=== PATIENT | female | born 2000 | race Caucasian/White ===

== ENCOUNTER 2022-08-14 21:09 | Observation (INO) | payer MEDICAID, SELFPAY ==
--- NOTE | 2022-08-14 | ECG_ITS ---
Test Reason : chest pain Blood Pressure : / mmHG Vent. Rate : 124 BPM Atrial Rate : 124 BPM P-R Int : 138 ms QRS Dur : 072 ms QT Int : 286 ms P-R-T Axes : 074 078 036 degrees QTc Int : 410 ms Sinus tachycardia Nonspecific T wave abnormality Abnormal ECG No previous ECGs available Referred By: Generic ED Physician Electronically Signed By:Justin Us
--- NOTE | ~2022-08-14 | XR_ITS ---
EXAMINATION: XR CHEST CLINICAL INFORMATION: Shortness of breath COMPARISON: None TECHNIQUE: 2 views of the chest were obtained. FINDINGS: No significant abnormality is noted involving the heart, lungs, mediastinum, bony thorax or soft tissues. XR/XR chest 2V IMPRESSION: Unremarkable examination.
[2022-08-14 21:14] VITALS: BP 148/95; PULSE 117; RESP 24; TEMP 36.4; O2SAT 96; BMI 32.3
[2022-08-14 22:30] VITALS: O2SAT 97
--- NOTE | 2022-08-14 22:57 | ED.SOB ---
HPI - SOB/Dyspnea General Chief Complaint: Dyspnea Stated Complaint: cough, hard time breathing Time Seen by Provider: 08/14/22 22:31 History of Present Illness HPI Narrative: patient is a 22-year-old female with a history of asthma. Presents today with coughing congestion upper respiratory symptoms that is been ongoing for 2 days. Feeling more tightness. Cough is nonproductive. Patient is vaccinated for COVID. Does not smoke. Use of breathing treatment with moderate relief. Never been intubated in the past. Patient has been seen in the emergency department as a child. Related Data Allergies Allergy/AdvReac Type Severity Reaction Status Date / Time ENVIRONMENTAL Allergy Unknown ASTHMA SX Uncoded 04/01/20 19:47 Review of Systems Review of Systems: Positive coughing congestion upper respiratory symptoms PMFSH Past Medical History Attestation statement: The following information was validated with the patient. Social History Social History Advance Directives: No Advance Directives Information Provided: No Physical Exam Vital Signs: Vital Signs: Last Vital Signs Temp 100.7 F H 08/15/22 00:48 Pulse 107 H 08/15/22 00:48 Resp 16 08/15/22 00:48 BP 133/77 08/15/22 00:48 Pulse Ox 98 08/15/22 00:48 O2 Del Method 08/15/22 00:48 BMI result Body Mass Index 32.3 Appearance: Alert. Oriented X3. No acute distress. Eyes: Pupils equal, round and reactive to light. ENT: Pharynx normal. Neck: Normal inspection. Neck supple. No lymph nodes noted. No crepitus CVS: Normal heart rate and rhythm. Pulses normal. Normal S1 and S2 Respiratory: No respiratory distress. Breath sounds normal. No Wheezing. No rales Abdomen: Soft and nontender. No rigidity. No distention. good BS x4 Skin: Skin warm and dry. Normal skin color. Normal skin turgor. Extremities: No lower extremity edema. Neurovascular intact to all extremities. No Lacerations. No Rash Neuro: Oriented X 3. No motor deficit. No sensory deficit. Moving all extermities. No slurred speech Medications Administered Discontinued Medications Generic Name Dose Route Start Last Admin Trade Name Freq PRN Reason Stop Dose Admin Prednisone 60 mg 08/14/22 22:56 08/14/22 23:11 Prednisone 20 Mg Tablet PO 08/14/22 22:57 60 mg ONCE ONE Administration Medical Decision Making Medical Decision Making MDM Narrative: positive coughing congestion upper respiratory symptoms. Patient had elevated heart rate most likely secondary to neb treatment and also a low-grade fever. Patient is not septic. Chest x-ray was grossly negative for any acute infiltrate. Patient is white count is 14 consistent with an upper respiratory infection. Her lungs are extremely wheezy with any increased work of breathing. Steroid was given patient was monitored in the Emergency Department. O2 sat dropped to 90% still extremely wheezy not much improved after continuous neb. We will go ahead and give patient additional albuterol. Tylenol for fever. Will discuss with hospitalist team for admission. patient is not septic. Patient's heart rate went up secondary to albuterol treatments. Cultures and antibiotics were ordered anyway. Lactate was ordered. A dose of antibiotics was given for possible bronchitis. Patient to be admitted. Differential Diagnosis Differential Diagnoses: The differential diagnosis associated with the presentation includes Asthma, COVID, flu, RSV, pneumonia Admission/Observation Consideration of admission/observation: Escalation of care including admission/observation considered Low oxygenation Consult Healthcare Provider Management of the patient was discussed with: Hospitalist Lab Data [facility] Lab Attestation statement: I reviewed the patient's lab results. 08/14/22 23:34 08/14/22 23:34 Labs: Lab Results 08/14/22 08/14/22 08/14/22 Range/Units 23:34 23:34 23:37 WBC 14.8 H (4.8-10.8) X10*3/uL RBC 4.92 (4.20-5.50) X10*6/uL Hgb 13.0 (12.0-16.0) g/dl Hct 41.1 (37.0-47.0) % MCV 83.5 (80.0-98.0) fL MCH 26.4 L (27.0-33.0) pg MCHC 31.6 (31.0-35.0) g/dl RDW 13.1 (11.0-16.0) % Plt Count 250 (160-400) X10*3/uL MPV 9.9 (9.4-12.3) fL Immature Gran % (Auto) 0.4 (0.0-0.4) % Neut % (Auto) 80.2 H (45-73) % Lymph % (Auto) 9.7 L (20-40) % [place] % (Auto) 5.8 (2-11) % Eos % (Auto) 3.6 (0-4) % Baso % (Auto) 0.3 (0-2) % Lymph # (Auto) 1.4 (1.2-4.9) X10*3/uL [place] # (Auto) 0.9 (0.1-1.2) X10*3/uL Eos # (Auto) 0.5 H (0.0-0.4) X10*3/uL Baso # (Auto) 0.0 (0.0-0.2) X10*3/uL Abs Immat Gran (auto) 0.06 H (0.00-0.03) X10*3/uL Absolute Neuts (auto) 11.9 H (2.0-8.3) x10*3/uL Absolute Nucleated RBC 0.000 (0.0-0.012) X10*3/uL Nucleated RBC % (auto) 0.0 (0.0-0.2) /100WBC Sodium 140 (135-145) mmol/L Potassium 3.7 (3.3-5.1) mmol/L Chloride 106 (96-108) mmol/L Carbon Dioxide 24 (22-29) mmol/L Anion Gap 14 (12-20) BUN 11 (9-16) mg/dL Creatinine 0.85 (0.5-1.4) mg/dL Estim Creat Clear Calc 116.7 Estimated GFR > 60 Random Glucose 156 H (60-115) mg/dL Calcium 9.2 (8.4-10.2) mg/dL Influenza Type A (PCR) NEGATIVE (Negative) Influenza Type B (PCR) NEGATIVE (Negative) RSV RNA Qual (PCR) NEGATIVE (Negative) SARS-CoV-2 RNA (RT-PCR) NEGATIVE (Negative) Radiology Impression Discussion of test interpretation with radiology: I have reviewed the radiologist's reading. Radiologist Impression: my personal review of the chest x-ray was grossly negative for any acute infiltrate. Discharge Plan Discharge Clinical Impression: Asthma with exacerbation, Bronchitis Patient Disposition: Admitted As Inpatient
[2022-08-14] MEDS: predniSONE 20 MG TABLET 60 MG PO (23:11)
[2022-08-14 23:43] LABS: MANUAL DIFF FLAG NO
[2022-08-14 23:44] LABS: Basophils Percent Auto 0.3 % (0-2); Eosinophils Absolute Auto 0.5 X10*3/uL (0.0-0.4); Eosinophils Percent Auto 3.6 % (0-4); Hematocrit 41.1 % (37.0-47.0); Imm Gran Abs Auto 0.06 X10*3/uL (0.00-0.03); Imm Gran Pct Auto 0.4 % (0.0-0.4); Lymphocytes Absolute Auto 1.4 X10*3/uL (1.2-4.9); Lymphocytes Percent Auto 9.7 % (20-40); Mean Corpuscular HGB Conc 31.6 g/dl (31.0-35.0); Mean Corpuscular Hemoglobin 26.4 pg (27.0-33.0); Mean Corpuscular Volume 83.5 fL (80.0-98.0); Mean Platelet Volume 9.9 fL (9.4-12.3); Monocytes Absolute Auto 0.9 X10*3/uL (0.1-1.2); Monocytes Percent Auto 5.8 % (2-11); Neutrophils Absolute Auto 11.9 x10*3/uL (2.0-8.3); Neutrophils Percent Auto 80.2 % (45-73); Platelet Count 250 X10*3/uL (160-400); Red Blood Count 4.92 X10*6/uL (4.20-5.50); Red Cell Distribution Width 13.1 % (11.0-16.0); White Blood Count 14.8 X10*3/uL (4.8-10.8)
[2022-08-14 23:56] LABS: Anion Gap 14 (12-20); Blood Urea Nitrogen 11 mg/dL (9-16); Calcium 9.2 mg/dL (8.4-10.2); Carbon Dioxide 24 mmol/L (22-29); Chloride 106 mmol/L (96-108); Creatinine Clr Calc Pharmacy 116.7; Estimated Glomerular Filt Rate > 60; Glucose Random 156 mg/dL (60-115); Potassium 3.7 mmol/L (3.3-5.1); Sodium 140 mmol/L (135-145)
[2022-08-15 00:24] LABS: Influenza A PCR NEGATIVE (Negative); Influenza B PCR NEGATIVE (Negative); Resp Syncy Virus RNA Qual PCR NEGATIVE (Negative); SARS COV2 PCR INHOUSE NEGATIVE (Negative)
[2022-08-15 00:48] VITALS: BP 133/77; PULSE 107; RESP 16; TEMP 38.2; O2SAT 98
[2022-08-15] MEDS: Albuterol Sulfate (0.083%) 2.5 MG/3 ML VIAL.NEB 5 MG INHALE (02:04)
[2022-08-15 02:06] VITALS: PULSE 105; RESP 20; O2SAT 91
[2022-08-15] MEDS: 0.9 % Sodium Chloride 2,721.54 ML 2721.54 ML IV (02:19)
[2022-08-15] MEDS: Acetaminophen 325 MG TABLET 975 MG PO (02:20)
--- NOTE | 2022-08-15 02:24 | PM.IMHP ---
History of Present Illness Date of Service: 08/15/22 Chief Complaint: Dyspnea This is a 22-year-old female with pertinent history of asthma who presents to the emergency department for evaluation of dyspnea. Patient states she started having dyspnea about 2 days prior to presentation. It was associated with wheezing. Prior to diet patient had runny nose, watering of eyes. States she was congested and had dry cough. No sick contacts. Does take albuterol inhaler at home for asthma and stated that it did not relieve her wheezing or dyspnea with exertion. Patient denies fever, chills, chest discomfort, palpitations. No abdominal pain or changes in urinary or bowel habits. In the emergency department, patient continued to have wheezing after DuoNebs and systemic steroids. Review of Systems Constitutional: Constitutional: Reports fatigue and Reports malaise Cardiovascular: Cardiovascular: Reports no additional cardiovascular complaints and Reports dyspnea on exertion Respiratory: Respiratory: Reports cough, Reports dyspnea on exertion and Reports wheezing Gastrointestinal: Gastrointestinal: Reports no additional gastrointestinal complaints Genitourinary: Genitourinary: Reports no additional female genitourinary complaints Endocrine: Endocrine: Reports fatigue Allergic/Immunologic: Allergic/Immunologic: Reports wheezing [facility] Medical History Asthma Functional capacity: independent ambulation Patient : No Pertinent family history: No family history of CAD Social History Advance Directives: No Advance Directives Information Provided: No Meds Allergies Allergy/AdvReac Type Severity Reaction Status Date / Time ENVIRONMENTAL Allergy Unknown ASTHMA SX Uncoded 04/01/20 19:47 Active Medications: Current Medications Acetaminophen (Acetaminophen 325 Mg Tablet) 650 mg PO Q6H PRN PRN Reason: Pain, Mild (Pain Scale 1-3) Albuterol Sulfate (Albuterol Sulfate 90 Mcg 8 Gm Inhaler) 2 puff INHALE RQ4H PRN PRN Reason: wheezing Albuterol/Ipratropium (Albuterol/Iprat 2.5/0.5mg 3 Ml Ampul.Neb) 3 ml INHALE RQ4H WHILE AWAKE MAXIMINO Sodium Chloride (Ns) 2,721.54 mls @ 2,721.54 mls/hr 30 ml/kg infuse over 1 hr (2721.54 ml) IV .Q1H STA Stop: 08/15/22 02:51 Last Admin: 08/15/22 02:19 Dose: 2,721.54 mls/hr Melatonin (Melatonin 3 Mg Tablet) 6 mg PO BEDTIME PRN PRN Reason: Insomnia Ondansetron HCl (Ondansetron Hcl 4 Mg/2 Ml Vial) 4 mg IVPUSH Q8H PRN PRN Reason: Nausea and Vomiting Sodium Chloride (0.9 % Sodium Chloride Flush 3 Ml Syringe) 3 ml IVFLUSH QSHIFT MAXIMINO Physical Exam Vital Signs and Narrative: Vital Signs: Last Vital Signs Temp 100.7 F H 08/15/22 00:48 Pulse 105 H 08/15/22 02:06 Resp 20 08/15/22 02:06 BP 133/77 08/15/22 00:48 Pulse Ox 98 08/15/22 00:48 O2 Del Method 08/15/22 00:48 BMI result Body Mass Index 32.3 Young female lying in bed in mild distress Neck supple, no JVD Tachycardic with regular rhythm, S1-S2 heard Bilateral wheezing appreciated without crackles Abdomen soft nontender, no guarding, no rigidity Patient is awake, alert and oriented to self, place, time and person ; no focal motor deficit Psych: Normal mood No pedal edema Results Labs 08/14/22 23:34 08/14/22 23:34 Labs: Laboratory Results - last 24 hr 08/14/22 08/14/22 08/14/22 23:34 23:34 23:37 MCV 83.5 MCH 26.4 L MCHC 31.6 RDW 13.1 Plt Count 250 MPV 9.9 Immature Gran % (Auto) 0.4 Neut % (Auto) 80.2 H Lymph % (Auto) 9.[address] [place] % (Auto) 5.8 Eos % (Auto) 3.6 Baso % (Auto) 0.3 Lymph # (Auto) 1.4 [place] # (Auto) 0.9 Eos # (Auto) 0.5 H Baso # (Auto) 0.0 Abs Immat Gran (auto) 0.06 H Absolute Neuts (auto) 11.9 H Absolute Nucleated RBC 0.000 Nucleated RBC % (auto) 0.0 Anion Gap 14 Estim Creat Clear Calc 116.7 Estimated GFR > 60 Random Glucose 156 H Calcium 9.2 Influenza Type A (PCR) NEGATIVE Influenza Type B (PCR) NEGATIVE RSV RNA Qual (PCR) NEGATIVE SARS-CoV-2 RNA (RT-PCR) NEGATIVE Imaging Radiologist's Impressions: Impressions Chest X-Ray 08/14/22 21:41 IMPRESSION: Unremarkable examination. Assessment and Plan (1) Asthma with exacerbation: Status: Acute (2) Bronchitis: Status: Acute Plan This is a 22-year-old female with pertinent history of asthma who presents to the emergency department for evaluation of dyspnea. Patient states she started having dyspnea about 2 days prior to presentation. #. Acute respiratory distress due to: #. Viral sepsis leading to acute asthma exacerbation -will admit patient and continue systemic steroids. Continue scheduled and p.r.n. DuoNebs. No indication for antibiotics as no concern for bacterial superinfection. Lactic acid and blood culture obtained. Resuscitated with IV crystalloids. DVT prophylaxis: None. Patient is ambulatory Full code Regular diet Time Spent With Patient Time: Total time managing care of this patient today ____ minutes. Quality Stroke Does the patient have a stroke diagnosis?: No VTE Prior VTE?: No VTE Risk Level:: Medical - low VTE Device Contraindication: Treatment Not Indicated VTE Drug Contraindication: Treatment Not Indicated
[2022-08-15] MEDS: cefTRIAXone sodium 1 GM in 0.9 % Sodium Chloride 50 ML IV (02:42)
[2022-08-15] MEDS: methylPREDNISolone Sod Succ 40 MG/ML VIAL IVPUSH (03:04)
[2022-08-15 03:19] VITALS: BP 112/70; PULSE 85; RESP 18; TEMP 36.7; O2SAT 96
--- NOTE | 2022-08-15 03:48 | PC.NURSE ---
Otis text sent to Dr. Lopez regarding critical lab result called for lactic acid 3.0
[2022-08-15] MEDS: 0.9 % Sodium Chloride 1,000 ML 999 ML IV (04:20)
[2022-08-15 05:23] LABS: Reflex Lactate? Lactic Acid Added
[2022-08-15 06:00] VITALS: BP 95/40; PULSE 97; TEMP 37.1; O2SAT 91
[2022-08-15] MEDS: 0.9 % Sodium Chloride Flush 3 ML SYRINGE IVFLUSH (07:13)
[2022-08-15 07:16] LABS: Basophils Percent Auto 0.1 % (0-2); Hematocrit 37.6 % (37.0-47.0); Hemoglobin 11.8 g/dl (12.0-16.0); Imm Gran Abs Auto 0.04 X10*3/uL (0.00-0.03); Imm Gran Pct Auto 0.4 % (0.0-0.4); Lymphocytes Absolute Auto 0.4 X10*3/uL (1.2-4.9); Lymphocytes Percent Auto 4.5 % (20-40); MANUAL DIFF FLAG SCAN; Mean Corpuscular HGB Conc 31.4 g/dl (31.0-35.0); Mean Corpuscular Hemoglobin 26.3 pg (27.0-33.0); Mean Corpuscular Volume 83.7 fL (80.0-98.0); Mean Platelet Volume 10.3 fL (9.4-12.3); Monocytes Absolute Auto 0.1 X10*3/uL (0.1-1.2); Monocytes Percent Auto 1.3 % (2-11); Neutrophils Absolute Auto 8.5 x10*3/uL (2.0-8.3); Neutrophils Percent Auto 93.7 % (45-73); Platelet Count 256 X10*3/uL (160-400); Red Blood Count 4.49 X10*6/uL (4.20-5.50); Red Cell Distribution Width 13.1 % (11.0-16.0); SCAN SMEAR FLAG 1
--- NOTE | 2022-08-15 07:30 | PC.NURSE ---
Patient with asthma exacerbation AOx 4 no distress noted LS tight slight wheeze no stridor noted. Patient has dry mom productive cough denies chest pain or abdominal pain will CTM
[2022-08-15 07:32] LABS: Blood Urea Nitrogen 8 mg/dL (9-16); Calcium 8.3 mg/dL (8.4-10.2); Creatinine Clr Calc Pharmacy 135.9; Estimated Glomerular Filt Rate > 60; Glucose Random 143 mg/dL (60-115)
[2022-08-15 07:44] LABS: Carbon Dioxide 19 mmol/L (22-29)
[2022-08-15 07:45] LABS: Chloride 113 mmol/L (96-108)
[2022-08-15 07:47] LABS: Anion Gap 14 (12-20); Potassium 4.5 mmol/L (3.3-5.1); Sodium 141 mmol/L (135-145)
[2022-08-15 07:48] LABS: SLIDE REVIEW VERIFIED
[2022-08-15 07:51] LABS: ~Lactic Acid-LAB USE ONLY 2.4 mmol/L (0.5-2.0)
[2022-08-15 08:17] VITALS: PULSE 97; RESP 20; O2SAT 92
[2022-08-15] MEDS: Albuterol/Iprat 2.5/0.5MG 3 ML AMPUL.NEB INHALE (08:17)
[2022-08-15 09:06] LABS: Reflex Lactate? 2 Y
--- NOTE | 2022-08-15 09:20 | PC.NURSE ---
Patient sleeping no distress noted easily aroused will CTM
--- NOTE | 2022-08-15 09:24 | PC.NURSE ---
Given permission by patient to update Saranya TEE at [facility] on patients condition will CTM
[2022-08-15 09:26] LABS: ~Lactic Acid-LAB USE ONLY 1.9 mmol/L (0.5-2.0)
--- NOTE | 2022-08-15 11:11 | MHC.CM.PN ---
CM spoke with Patient over the phone at [phone] and addressed BELLE with her. [place] and [place] new [address] is [facility] [address] [place]. Home/self care is the goal and cM has initiated and will follow for dc planning. Patient is not current with her PCP and she has received Moderna/Covid vax x1.
--- NOTE | 2022-08-15 11:21 | P.DS_ITS ---
DS: Providers Provider Date of Service: 08/15/22 Date of admission: 08/15/22 01:53 Primary care physician: Nonstaff Physician DS: Diagnosis Discharge Diagnosis (1) Asthma with exacerbation: Status: Acute (2) Bronchitis: Status: Acute DS: Summary Hospital Course Hospital Course: Admission note HPI This is a 22-year-old female with pertinent history of asthma who presents to the emergency department for evaluation of dyspnea.? Patient states she started having dyspnea about 2 days prior to presentation.? It was associated with wheezing.? Prior to diet patient had runny nose, watering of eyes.? States she was congested and had dry cough.? No sick contacts.? Does take albuterol inhaler at home for asthma and stated that it did not relieve her wheezing or dyspnea with exertion.? Patient denies fever, chills, chest discomfort, palpitations.? No abdominal pain or changes in urinary or bowel habits. In the emergency department, patient continued to have wheezing after DuoNebs and systemic steroids. Hospital course The patient was observed in the hospital for acute asthma attack. Responded well to treatment with steroids, bronchodilator nebulizers as she was of the oxygen and able to ambulate with no reported dyspnea. Will be prescribed prednisone for 4 days and fluticasone inhaler for long-term usage. To continue albuterol inhaler as needed. Advised to avoid any possible aggravators of her asthma and to follow-up with PCP. Lactic acidosis from albuterol usage not due to sepsis as no source of infection identified. Continue prednisone daily for the next 4 days Start Fluticasone inhalor twice daily use Albuterol inhalor as needed To follow up with PCP Time Spent with Patient Time attestation: Total time managing care of this patient today ____ minutes. Discharge coordination time: Less than 30 minutes Quality: Safe Use of Opioids Does Pt have an Active Cancer Diagnosis on the Problem List?: No Quality: Stroke Does the patient have a stroke diagnosis?: No Physical Exam Vital Signs: Vital Signs: Last Vital Signs Temp 98.7 F 08/15/22 06:00 Pulse 97 08/15/22 08:17 Resp 20 08/15/22 08:17 BP 95/40 L 08/15/22 06:00 Pulse Ox 91 L 08/15/22 06:00 O2 Del Method 08/15/22 06:00 BMI result Body Mass Index 32.3 Const: Other: Constitutional : Awake, interactive, not in distress Neck : Normal inspection, Supple Cardiovascular : RRR, no JVP, no lower extremity edema Respiratory : good bilateral air entry, no crackles, bilateral scattered expiratory wheezes Gastrointestinal: soft, lax, Normal bowel sounds, Non tender Skin : Warm, Dry Neurological : Alert & oriented x3, No focal deficit DS: Data Data Completed and Pending Labs on day of discharge: Laboratory Results - last 24 hr 08/14/22 08/14/22 08/14/22 23:34 23:34 23:37 WBC 14.8 H RBC 4.92 Hgb 13.0 Hct 41.1 MCV 83.5 MCH 26.4 L MCHC 31.6 RDW 13.1 Plt Count 250 MPV 9.9 Immature Gran % (Auto) 0.4 Neut % (Auto) 80.2 H Lymph % (Auto) 9.7 L [place] % (Auto) 5.8 Eos % (Auto) 3.6 Baso % (Auto) 0.3 Lymph # (Auto) 1.4 [place] # (Auto) 0.9 Eos # (Auto) 0.5 H Baso # (Auto) 0.0 Abs Immat Gran (auto) 0.06 H Absolute Neuts (auto) 11.9 H Absolute Nucleated RBC 0.000 Nucleated RBC % (auto) 0.0 Smear Tech's Comments Sodium 140 Potassium 3.7 Chloride 106 Carbon Dioxide 24 Anion Gap 14 BUN 11 Creatinine 0.85 Estim Creat Clear Calc 116.7 Estimated GFR > 60 Random Glucose 156 H Lactic Acid Lactic Acid F/U @ 2Hr Lactic Acid F/U @ 4Hr Calcium 9.2 Influenza Type A (PCR) NEGATIVE Influenza Type B (PCR) NEGATIVE RSV RNA Qual (PCR) NEGATIVE SARS-CoV-2 RNA (RT-PCR) NEGATIVE 08/15/22 08/15/22 08/15/22 02:38 06:41 06:41 WBC 9.0 RBC 4.49 Hgb 11.8 L Hct 37.6 MCV 83.7 MCH 26.3 L MCHC 31.4 RDW 13.1 Plt Count 256 MPV 10.3 Immature Gran % (Auto) 0.4 Neut % (Auto) 93.7 H Lymph % (Auto) 4.5 L [place] % (Auto) 1.3 L Eos % (Auto) 0.0 Baso % (Auto) 0.1 Lymph # (Auto) 0.4 L [place] # (Auto) 0.1 Eos # (Auto) 0.0 Baso # (Auto) 0.0 Abs Immat Gran (auto) 0.04 H Absolute Neuts (auto) 8.5 H Absolute Nucleated RBC 0.000 Nucleated RBC % (auto) 0.0 Smear Tech's Comments VERIFIED Sodium 141 Potassium 4.5 D Chloride 113 H Carbon Dioxide 19 L Anion Gap 14 BUN 8 L Creatinine 0.73 Estim Creat Clear Calc 135.9 Estimated GFR > 60 Random Glucose 143 H Lactic Acid 3.0 H* Lactic Acid F/U @ 2Hr Lactic Acid F/U @ 4Hr Calcium 8.3 L D Influenza Type A (PCR) Influenza Type B (PCR) RSV RNA Qual (PCR) SARS-CoV-2 RNA (RT-PCR) 08/15/22 08/15/22 06:41 09:10 WBC RBC Hgb Hct MCV MCH MCHC RDW Plt Count MPV Immature Gran % (Auto) Neut % (Auto) Lymph % (Auto) [place] % (Auto) Eos % (Auto) Baso % (Auto) Lymph # (Auto) [place] # (Auto) Eos # (Auto) Baso # (Auto) Abs Immat Gran (auto) Absolute Neuts (auto) Absolute Nucleated RBC Nucleated RBC % (auto) Smear Tech's Comments Sodium Potassium Chloride Carbon Dioxide Anion Gap BUN Creatinine Estim Creat Clear Calc Estimated GFR Random Glucose Lactic Acid Lactic Acid F/U @ 2Hr 2.4 H* Lactic Acid F/U @ 4Hr 1.9 Calcium Influenza Type A (PCR) Influenza Type B (PCR) RSV RNA Qual (PCR) SARS-CoV-2 RNA (RT-PCR) Discharge Plan Discharge Patient Disposition: Home, Self-Care Discharge Diagnosis: Acute asthma exacerbation Referrals: Physician,Nonstaff [Primary Care Provider] - 1 Week Discharge Medications: New albuterol sulfate [Ventolin HFA] 90 mcg/actuation Hfa Aerosol Inhaler 2 puff inhalation RQ4H PRN (Reason: wheezing) Qty: 1 1RF prednisone 20 mg tablet 40 mg PO DAILY Qty: 8 0RF fluticasone propionate 110 mcg/actuation HFA aerosol inhaler 1 puff inhalation BID Qty: 12 1RF Discharge Orders: Discharge Order (Routine); Ordered 08/15/22 Ordered By: Alva Briggs Diet: Advance to usual diet Activity on Discharge: As tolerated Stand Alone Forms: Patient Portal Discharge page Care Plan Goals: Read below Health Concerns: Read below Plan of Treatment: Read below Assessment: You were admitted to the hospital for evaluation of difficulties breathing. treated with steroids and nebulizers with good response. Continue prednisone daily for the next 4 days Start Fluticasone inhalor twice daily use Albuterol inhalor as needed To follow up with PCP
--- NOTE | 2022-08-15 11:23 | MHC.CM.PN ---
Patient has been medically cleared for dc to home today, self care.
--- NOTE | 2022-08-15 11:32 | PC.NURSE ---
Patient up ambulatory to bathroom independently placed in hospital bed will CTM
== END 2022-08-15 13:00 | disposition home or self-care (01) ==
LOC: HO.ED 08-15 01:56 → HO.EDOVER 08-15 02:26
PROVIDERS: Admitting Provider Student in an Organized Health Care Education/Training Program; Emergency Provider Emergency Medicine Emergency Medical Services; Visit Provider Student in an Organized Health Care Education/Training Program
DX: J45.901 Unspecified asthma with (acute) exacerbation (principal); J20.9 Acute bronchitis, unspecified; R06.02 Shortness of breath; R07.9 Chest pain, unspecified; E87.20 Acidosis, unspecified; Z20.822 Contact with and (suspected) exposure to COVID-19
CPT/HCPCS: 0241U; 36415; 71046; 80048; 83605; 85025; 87040; 93005; 94640; 96361; 96365; 96375; 99221; 99285; J0696; J2920